=== PATIENT | female | born 1970 | race Caucasian/White ===

== ENCOUNTER → 2017-08-23 17:03 | Outpatient (CLI) | payer MEDICARE | END | disposition home or self-care (01) | LOC: D.MAMMO 10:45 | DX: Z12.31 Encounter for screening mammogram for malignant neoplasm of breast (principal) ==

== ENCOUNTER 2019-10-12 16:25 | Outpatient (CLI) | payer MEDICARE | END 2019-10-12 16:27 | disposition home or self-care (01) | LOC: D.MAMMO 16:25 | PROVIDERS: ATTEND Family Medicine Adult Medicine | DX: Z12.31 Encounter for screening mammogram for malignant neoplasm of breast (principal) ==